=== PATIENT | female | born 1990 | race Asian ===

== ENCOUNTER 2020-05-20 10:17 | Observation (INO) | payer OTHER ==
[~2020-05-20] VITALS: Ht 152.4 cm; Wt 76.2 kg
== END 2020-05-20 13:00 | disposition home or self-care (01) ==
LOC: SPU 10:17
PROVIDERS: ADMIT Obstetrics & Gynecology; ATTEND Obstetrics & Gynecology
DX: O62.9 Abnormality of forces of labor, unspecified (principal); Z3A.39 39 weeks gestation of pregnancy
CPT/HCPCS: 59025; 76819; G0378